=== PATIENT | female | born 1985 | race Caucasian/White ===

== ENCOUNTER 2019-09-13 17:35 | Emergency (ER) | payer OTHER ==
[2019-09-13 17:56] VITALS: TEMP 98.3
[2019-09-13] MEDS ORDERED: predniSONE 20 MG TAB PO ONE (18:06)
[2019-09-13] MEDS ORDERED: PROMETHAZINE HCL INJ 25 MG in SODIUM CHLORIDE 0.9% 50ML 50 ML IVPB ONE (18:06)
[2019-09-13] MEDS ORDERED: KETOROLAC TROMETHAMINE INJ 30 MG/ML VIAL IM ONE (18:06)
[2019-09-13] MEDS ORDERED: HYDROcodone 7.5MG/APAP 325MG 1 EA TAB PO ONE (18:06)
[2019-09-13] MEDS ORDERED: PROMETHAZINE HCL INJ 25 MG/ML VIAL ONE (18:11)
[2019-09-13] MEDS ORDERED: SODIUM CHLORIDE 0.9% 50ML 50 ML ONE (18:12)
[2019-09-13] MEDS ORDERED: SULFA/TRIMETH 800/160 (DS) TAB 1 EA TAB PO ONE (18:14)
[2019-09-13] MEDS ORDERED: CIPROFLOXACIN 500 MG TAB PO ONE (19:47)
[2019-09-13] MEDS ORDERED: cefTRIAXone SODIUM 1 GM VIAL IM ONE (19:48)
[2019-09-13] MEDS ORDERED: LIDOCAINE 1% 2 ML VIAL INJ ONE (19:51)
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
[2019-09-13 20:00] VITALS: BP 101/66; O2SAT 100
== END 2019-09-13 20:09 | disposition home or self-care (01) ==
LOC: ER 17:35
DX: N30.90 Cystitis, unspecified without hematuria (principal); G43.909 Migraine, unspecified, not intractable, without status migrainosus; D50.8 Other iron deficiency anemias
CPT/HCPCS: 36415; 80053; 81001; 83735; 84443; 84703; 85025; 87086; A4216; J0696; J1885; J2550; J7512

== ENCOUNTER 2019-12-18 20:13 | Emergency (ER) | payer OTHER ==
[2019-12-18] MEDS ORDERED: SODIUM CHLORIDE 0.9% 1000ML 1,000 ML IVS ONE (20:38)
[2019-12-18] MEDS ORDERED: ONDANSETRON INJ 4 MG/2 ML VIAL IV ONE (20:38)
--- NOTE | 2019-12-18 20:42 | ED.PDOC ---
History of Present Illness - General Chief Complaint: General Stated Complaint: dizzy, lightheaded, nausea x's 2 days Time Seen by Provider: 12/18/19 20:33 Additional Information: Patient is a 34-year-old female who presents to the ED with chief complaint of dizziness. 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 Patient indicates the symptoms have been on and off for the past 2 days but became worse today. Patient denies vomiting, fever, chills, chest pain, shortness of breath, abdominal pain, dysuria. She does not believe that she is . Patient in general is healthy and has not experienced these symptoms before. Patient is asymptomatic here in the ED and feeling better. She denies any sensation of vertigo and she indicates she has no difficulty walking. - History of Present Illness Allergies/Adverse Reactions: Allergies NO KNOWN ALLERGY Allergy (Verified 12/18/19 20:28) Home Medications: Ambulatory Orders Ciprofloxacin [Cipro] 500 mg PO BID #10 tab 09/13/19 Sulfa/Trimeth 800/160 (Ds) Tab [Bactrim DS Tab] 1 ea PO BID #10 tab 09/13/19 Meclizine HCl [Antivert] 25 mg PO Q8H PRN #20 tab 12/18/19 Review of Systems - Review of Systems Constitutional: States: weakness. Denies: chills, fever Respiratory: States: no symptoms reported. Denies: cough, short of breath Cardiology: Denies: chest pain, palpitations Gastrointestinal/Abdominal: States: nausea. Denies: abdominal pain, vomiting Genitourinary: Denies: dysuria, frequency, hematuria Musculoskeletal: States: no symptoms reported. Denies: muscle pain Skin: States: no symptoms reported. Denies: rash Neurological: States: no symptoms reported. Denies: numbness, paresthesia All other Systems: Reviewed and Negative Past Medical History (General) - Patient Medical History Hx Seizures: No Hx Stroke: No Hx Dementia: No Hx Asthma: No Hx of COPD: No Hx Cardiac Disorders: No Hx Congestive Heart Failure: No Hx Pacemaker: No Hx Hypertension: No Hx Thyroid Disease: Yes - during Hx Diabetes: No Hx Gastroesophageal Reflux: No Hx Renal Disease: No Hx Cancer: No Hx of HIV: No Hx Hepatitis C: No Hx MRSA: No Surgical History: appendectomy, cholecystectomy - Vaccination History Hx Tetanus, Diphtheria Vaccination: Yes Hx Influenza Vaccination: No - Social History Hx Alcohol Use: No - Female History Patient : No Family Medical History - Family History Mother Family History: No Known Physical Exam - Physical Exam General Appearance: Alert, Comfortable, No apparent distress, Well Developed, Well Nourished Neck: supple, normal inspection Respiratory: lungs clear, normal breath sounds, no respiratory distress, no accessory muscle use Cardiovascular/Chest: normal peripheral pulses, regular rate, rhythm, no edema, no gallop, no JVD, no murmur Gastrointestinal/Abdominal: normal bowel sounds, non tender, soft, no organomegaly, no pulsatile mass Back Exam: no CVA tenderness Extremity: normal inspection, no pedal edema 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 12/18/19 21:11 EKG: Sinus bradycardia, rate 57, normal QRS, normal axis, normal ST segment, nonspecific T wave changes. Negative STEMI. EKG read by Carlitos Steiner MD. 12/18/19 22:54 Patient feeling much better status post IV fluids. Her labs are unremarkable and her EKG is non-concerning. Clinically I suspect possible volume depletion as the source of patient's symptoms. I will discharge with Antivert and patient to follow-up with her PCP as needed. Vital signs stable, patient is NAD and looks clinically well and I believe is safe for discharge with outpatient f ollow-up. Follow-up instructions, discharge instructions and return to ED precautions discussed with patient. Patient voices understanding and willingness to comply with instructions. All laboratory results have been discussed with the patient, and all questions answered. Patient is happy with plan. Departure - Departure Clinical Impression: Dizziness Time of Disposition: 22:56 Disposition: Discharge to Home or Self Care Condition: Good Departure Forms: ED Discharge - Pt. Copy, Patient Portal Self Enrollment Instructions: Dizziness, Nonvertigo, (DC) Referrals: KWASI LAZARO [Primary Care Provider] - 1-2 Weeks Prescriptions: Meclizine HCl [Antivert] 25 mg PO Q8H PRN #20 tab PRN Reason: Dizziness Home Medications: Ambulatory Orders Ciprofloxacin [Cipro] 500 mg PO BID #10 tab 09/13/19 Sulfa/Trimeth 800/160 (Ds) Tab [Bactrim DS Tab] 1 ea PO BID #10 tab 09/13/19 Meclizine HCl [Antivert] 25 mg PO Q8H PRN #20 tab 12/18/19
[2019-12-18 22:06] VITALS: BP 105/69; TEMP 96.7; O2SAT 99
== END 2019-12-18 23:01 | disposition home or self-care (01) ==
LOC: ER 20:13
DX: R42 Dizziness and giddiness (principal); R00.1 Bradycardia, unspecified
CPT/HCPCS: 80053; 81001; 84702; 85025; 93005; J2405; J7030

== ENCOUNTER 2019-12-31 21:39 | Emergency (ER) | payer OTHER ==
[2019-12-31] MEDS ORDERED: HYDROcodone 10MG/APAP 325MG 1 EA TAB PO ONE (22:01)
[2019-12-31] MEDS ORDERED: CYCLOBENZAPRINE HCL 10 MG TAB PO ONE (22:01)
[2019-12-31] MEDS ORDERED: IBUPROFEN 200 MG TAB PO ONE (22:01)
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
[2019-12-31 22:29] VITALS: O2SAT 99
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
[2019-12-31 23:28] VITALS: BP 102/66; TEMP 97.1
== END 2019-12-31 23:28 | disposition home or self-care (01) ==
LOC: ER 21:39
DX: S43.402A Unspecified sprain of left shoulder joint, initial encounter (principal); S63.502A Unspecified sprain of left wrist, initial encounter; V49.59XA Passenger injured in collision with other motor vehicles in traffic accident, initial encounter; Y92.410 Unspecified street and highway as the place of occurrence of the external cause; Z87.891 Personal history of nicotine dependence

== ENCOUNTER 2020-01-06 06:52 | Emergency (ER) | payer OTHER ==
[2020-01-06] MEDS ORDERED: ONDANSETRON ODT 8 MG TAB SL PRN (07:06)
[2020-01-06] MEDS ORDERED: MORPHINE SULFATE INJ 10 MG/ML VIAL IM ONE (07:06)
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
--- NOTE | 2020-01-06 07:32 | RAD ---
EXAM: X-RAY, three views of the cervical spine HISTORY: Neck pain. COMPARISON: None. FINDINGS: Alignment: Normal. Bones: No acute fracture. Discs: Normal disc spaces. Facets: Mild to moderate arthropathy at C7-T1. IMPRESSION: 1. Mild to moderate facet arthropathy at C7-T1. 2. No acute bone abnormality. Electronically signed by: Chino Ng MD 01/06/2020 7:31 AM CDT
--- NOTE | 2020-01-06 07:33 | RAD ---
EXAM: XR Left Scapula Complete CLINICAL HISTORY: The patient is 34 years old and is Female; pain TECHNIQUE: Two views of the left scapula. COMPARISON: No relevant prior studies available. FINDINGS: Bones/joints: Unremarkable. No acute fracture. No dislocation. Soft tissues: Unremarkable. IMPRESSION: No acute findings. Electronically signed by: Yasmin Wang MD 01/06/2020 7:31 AM CDT
[2020-01-06 08:14] VITALS: BP 97/59; TEMP 97.4; O2SAT 99
== END 2020-01-06 08:10 | disposition home or self-care (01) ==
LOC: ER 06:52
DX: S43.402D Unspecified sprain of left shoulder joint, subsequent encounter (principal); M67.912 Unspecified disorder of synovium and tendon, left shoulder; M47.813 Spondylosis without myelopathy or radiculopathy, cervicothoracic region; Z87.891 Personal history of nicotine dependence; V49.9XXD Car occupant (driver) (passenger) injured in unspecified traffic accident, subsequent encounter; Y92.410 Unspecified street and highway as the place of occurrence of the external cause
CPT/HCPCS: 72040; 73010; J2270

== ENCOUNTER 2020-03-19 18:37 | Emergency (ER) | payer OTHER ==
[2020-03-19 18:53] VITALS: TEMP 97.9
[2020-03-19] MEDS ORDERED: cefTRIAXone SODIUM 1 GM VIAL IM ONE (19:07)
[2020-03-19] MEDS ORDERED: CIPROFLOXACIN 500 MG TAB PO ONE (19:07)
[2020-03-19] MEDS ORDERED: IBUPROFEN 200 MG TAB PO ONE (19:08)
[2020-03-19] MEDS ORDERED: PHENAZOPYRIDINE HCL 200 MG TAB PO ONE (19:08)
[2020-03-19] MEDS ORDERED: LIDOCAINE 1% 10 ML VIAL INJ ONE (19:16)
--- NOTE | 2020-03-19 19:24 | ED.PDOC ---
History of Present Illness - General Chief Complaint: Problem Stated Complaint: left flank pain Time Seen by Provider: 03/19/20 18:39 Source: patient Exam Limitations: no limitations - History of Present Illness Initial Comments: The patient is a 34-year-old female presented emergency room secondary to left leg pain that started about 24 hours ago. It is associated with increased urinary frequency and dysuria. No fever. No history of frequent urinary tract infections. No other symptoms. No vaginal discharge. Timing/Duration: 24 hours Severity: moderate Improving Factors: nothing Worsening Factors: nothing Associated Symptoms: denies symptoms Allergies/Adverse Reactions: Allergies NO KNOWN ALLERGY Allergy (Verified 12/18/19 20:28) Home Medications: Ambulatory Orders Acetaminophen W/ Codeine [Tylenol W/ CODEINE #3] 1 - 2 tablet PO Q6H PRN #20 ea 12/31/19 Cyclobenzaprine HCl [Flexeril] 10 mg PO Q6H PRN #20 tab 12/31/19 Ibuprofen [Motrin] 600 mg PO Q6H PRN #20 tab 12/31/19 Gabapentin 100 mg PO QID PRN #30 cap 01/06/20 Amoxicillin & Pot Clavulanate [Augmentin Tab] 875 mg PO BID #14 tab 03/19/20 Ciprofloxacin [Cipro] 500 mg PO BID #14 tab 03/19/20 Review of Systems - Review of Systems Constitutional: States: no symptoms reported EENTM: States: no symptoms reported Respiratory: States: no symptoms reported Cardiology: States: no symptoms reported Gastrointestinal/Abdominal: States: no symptoms reported Genitourinary: States: dysuria, frequency Musculoskeletal: States: back pain Skin: States: no symptoms reported Neurological: States: no symptoms reported Endocrine: States: no symptoms reported Hematologic/Lymphatic: States: no symptoms reported All other Systems: No Change from Baseline Past Medical History (General) - Patient Medical History Hx Seizures: No Hx Stroke: No Hx Dementia: No Hx Asthma: No Hx of COPD: No Hx Cardiac Disorders: No Hx Congestive Heart Failure: No Hx Pacemaker: No Hx Hypertension: No Hx Thyroid Disease: Yes - during Hx Diabetes: No Hx Gastroesophageal Reflux: No Hx Renal Disease: No Hx Cancer: No Hx of HIV: No Hx Hepatitis C: No Hx MRSA: No Surgical History: appendectomy, cholecystectomy, other - Vaccination History Hx Tetanus, Diphtheria Vaccination: No Hx Influenza Vaccination: No - Social History Hx Tobacco Use: Yes Hx Alcohol Use: Yes - Female History Patient : No Family Medical History - Family History Mother Family History: No Known Physical Exam - Physical Exam General Appearance: Alert, Other - Uncomfortable Eye Exam: bilateral normal Ears, Nose, Throat: hearing grossly normal, normal pharynx Neck: full range of motion Respiratory: no respiratory distress, no accessory muscle use Cardiovascular/Chest: normal peripheral pulses, no edema Peripheral Pulses: radial,right: 2+, radial,left: 2+ Rectal Exam: deferred Back Exam: CVA tenderness (L) - Mild Extremity: normal range of motion, no pedal edema 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 The patient is being placed on ciprofloxacin and receiving a dose of Rocephin. She will continue the ciprofloxacin and Augmentin for the next week. She does need to follow back up with her primary care doctor for a repeat urinalysis and test of cure. Urine will be cultured here. Obviously if the patient is worsening then she needs to return further evaluation and intervention. She does need to increase her fluid intake significantly over the next few days. Additionally she can take [id number] Azo and ibuprofen for symptom relief if needed. ER warnings are given. britta nam [phone] - Results/Orders Results/Orders: Laboratory Tests 03/19/20 18:48 Urine Color Yellow Urine Appearance Cloudy Urine pH 6.0 Ur Specific [place] >= 1.030 Urine Protein >=300 H Urine Glucose (UA) Negative Urine Ketones Trace Urine Blood Large H Urine Nitrite Positive H Urine Bilirubin Negative Urine Urobilinogen 1.0 Ur Leukocyte Esterase Small H Urine RBC Obscured by wbc's H Urine WBC Tntc H Ur Epithelial Cells Obscured by wbc's Urine Bacteria Obscured by wbc's H Departure - Departure Clinical Impression: Pyelonephritis Disposition: Discharge to Home or Self Care Condition: Fair Departure Forms: ED Discharge - Pt. Copy, Patient Portal Self Enrollment Instructions: Urinary Tract Infection, Adult (DC) Diet: regular diet Activity: increase activity as tolerated Referrals: KWASI LAZARO [Primary Care Provider] - 1-2 Weeks Prescriptions: Amoxicillin & Pot Clavulanate [Augmentin Tab] 875 mg PO BID #14 tab Ciprofloxacin [Cipro] 500 mg PO BID #14 tab Home Medications: Ambulatory Orders Acetaminophen W/ Codeine [Tylenol W/ CODEINE #3] 1 - 2 tablet PO Q6H PRN #20 ea 12/31/19 Cyclobenzaprine HCl [Flexeril] 10 mg PO Q6H PRN #20 tab 12/31/19 Ibuprofen [Motrin] 600 mg PO Q6H PRN #20 tab 12/31/19 Gabapentin 100 mg PO QID PRN #30 cap 01/06/20 Amoxicillin & Pot Clavulanate [Augmentin Tab] 875 mg PO BID #14 tab 03/19/20 Ciprofloxacin [Cipro] 500 mg PO BID #14 tab 03/19/20 Additional Instructions: The patient is a 34-year-old female presenting with what appears to be early pyelonephritis on the left. The patient is being placed on ciprofloxacin and receiving a dose of Rocephin. She will continue the ciprofloxacin and Augmentin for the next week. She does need to follow back up with her primary care doctor for a repeat urinalysis and test of cure. Urine will be cultured here. Obviously if the patient is worsening then she needs to return further evaluation and intervention. She does need to increase her fluid intake significantly over the next few days. Additionally she can take [id number] Azo and ibuprofen for symptom relief if needed. ER warnings are given.
[2020-03-19 19:39] VITALS: BP 111/59; O2SAT 97
== END 2020-03-19 19:42 | disposition home or self-care (01) ==
LOC: ER 18:37
DX: N12 Tubulo-interstitial nephritis, not specified as acute or chronic (principal); M79.605 Pain in left leg
CPT/HCPCS: 81001; 87086; 87088; 87186; J0696

== ENCOUNTER 2020-03-21 16:14 | Emergency (ER) | payer OTHER ==
[2020-03-21] MEDS ORDERED: KETOROLAC TROMETHAMINE INJ 30 MG/ML VIAL IV ONE (16:25)
[2020-03-21] MEDS ORDERED: SODIUM CHLORIDE 0.9% 1000ML 1,000 ML IVS ONE (16:25)
--- NOTE | 2020-03-21 18:10 | CT ---
EXAM: CT Abdomen and Pelvis With Intravenous Contrast CLINICAL HISTORY: uti left flank pain, failure to respond to abx TECHNIQUE: Axial computed tomography images of the abdomen and pelvis with intravenous contrast. Sagittal and coronal reformatted images were created and reviewed. This CT exam was performed using one or more of the following dose reduction techniques: automated exposure control, adjustment of the mA and/or kV according to patient size, and/or use of iterative reconstruction technique. COMPARISON: No relevant prior studies available. FINDINGS: Limitations: None. Lung bases: No abnormality noted. Pleural space: No abnormality noted. Heart: No abnormality noted. Mediastinum: No abnormality noted. ABDOMEN: Liver: No abnormality noted. Gallbladder and bile ducts: Cholecystectomy. Pancreas: Homogeneous enhancement. No mass, inflammation or ductal dilation. Spleen: No abnormality noted. Adrenals: Visualized portions appear normal. Kidneys and ureters: There is mild left hydroureteronephrosis. There is mild diffuse left urothelial thickening. No stone. There is a 2 mm nonobstructing right kidney stone. Stomach and bowel: Gastric bypass changes present. PELVIS: Appendix: Appendectomy. Bladder: No filling defects to suggest mass or large stone. No inflammation. Reproductive: No abnormalities noted. ABDOMEN and PELVIS: Intraperitoneal space: No free air. No significant fluid collection. Bones/joints: No acute change noted. Soft tissues: No abnormality noted. Vasculature: No abdominal aortic aneurysm. Lymph nodes: There are mildly enlarged inflamed lymph nodes in the root of the mesentery likely reactive. IMPRESSION: There is mild left hydroureteronephrosis and urothelial thickening. Consider pyelonephritis and recently passed stone. Electronically signed by: Prabha Pete MD 03/21/2020 6:09 PM CDT
[2020-03-21] MEDS ORDERED: CIPROFLOXACIN 500 MG TAB PO ONE (18:47)
[2020-03-21] MEDS ORDERED: PIPERACILLIN/TAZOBACTAM 3.375 GM in SODIUM CHLORIDE 0.9% 100ML 100 ML IVPB ONE (18:47)
--- NOTE | 2020-03-21 18:53 | ED.PDOC ---
History of Present Illness - General Chief Complaint: Problem Stated Complaint: left sided flank pain Time Seen by Provider: 03/21/20 16:15 Source: patient Exam Limitations: no limitations - History of Present Illness Initial Comments: The patient is a 34-year-old female presented to emergency room secondary to significant worsening of left flank pain today. Mild nausea along with it. The patient was seen 2 days ago with suspected early pyelonephritis but a definite cystitis. She was started on Augmentin and ciprofloxacin. No fevers. No history of pyelonephritis. She has had several urinary tract infections in the past. She denies any history of kidney stones on that side. Pain at its worst was about a 9 out of 10. It is currently a 6 or 7. The fl[place] nava is still having persistent urinary frequency and dysuria. Timing/Duration: other - Total of 4 days now Severity: moderate Improving Factors: nothing Worsening Factors: nothing Associated Symptoms: malaise, nausea/vomiting Allergies/Adverse Reactions: Allergies NO KNOWN ALLERGY Allergy (Verified 03/21/20 16:29) Home Medications: Ambulatory Orders Acetaminophen W/ Codeine [Tylenol W/ CODEINE #3] 1 - 2 tablet PO Q6H PRN #20 ea 12/31/19 Cyclobenzaprine HCl [Flexeril] 10 mg PO Q6H PRN #20 tab 12/31/19 Ibuprofen [Motrin] 600 mg PO Q6H PRN #20 tab 12/31/19 Gabapentin 100 mg PO QID PRN #30 cap 01/06/20 Amoxicillin & Pot Clavulanate [Augmentin Tab] 875 mg PO BID #14 tab 03/19/20 Ciprofloxacin [Cipro] 500 mg PO BID #14 tab 03/19/20 Review of Systems - Review of Systems Constitutional: States: malaise EENTM: States: no symptoms reported Respiratory: States: no symptoms reported Cardiology: States: no symptoms reported Gastrointestinal/Abdominal: States: nausea Genitourinary: States: see HPI Musculoskeletal: States: back pain Skin: States: no symptoms reported Neurological: States: no symptoms reported Endocrine: States: no symptoms reported All other Systems: No Change from Baseline Past Medical History (General) - Patient Medical History Hx Seizures: No Hx Stroke: No Hx Dementia: No Hx Asthma: No Hx of COPD: No Hx Cardiac Disorders: No Hx Congestive Heart Failure: No Hx Pacemaker: No Hx Hypertension: No Hx Thyroid Disease: Yes - during Hx Diabetes: No Hx Gastroesophageal Reflux: No Hx Renal Disease: No Hx Cancer: No Hx of HIV: No Hx Hepatitis C: No Hx MRSA: No Surgical History: appendectomy, cholecystectomy - Vaccination History Hx Tetanus, Diphtheria Vaccination: No Hx Influenza Vaccination: No - Social History Hx Tobacco Use: Yes Hx Alcohol Use: Yes - Activities of Daily Living Hospice Agency (if applicable):: None - Female History Patient : No Family Medical History - Family History Mother Family History: No Known Physical Exam - Physical Exam General Appearance: Alert Eye Exam: bilateral normal Ears, Nose, Throat: hearing grossly normal, normal ENT inspection Neck: full range of motion, supple Respiratory: lungs clear, normal breath sounds, no respiratory distress, no accessory muscle use Cardiovascular/Chest: normal peripheral pulses, regular rate, rhythm, no edema Peripheral Pulses: radial,right: 2+, radial,left: 2+ Gastrointestinal/Abdominal: non tender - Mild suprapubic discomfort persists, soft Rectal Exam: deferred Back Exam: CVA tenderness (L) Extremity: non-tender, normal inspection, no pedal edema, normal capillary refill 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 Urinalysis appears a little bit improved when compared to 2 days ago with the patient's left-sided, left flank symptoms have worsened significantly. CT scan is concerning for the possibility of a stricture at about the proximal third of the left ureter. The patient's blood pressures are borderline low but according to her, they normally are somewhat low. She has received a liter of IV fluids. She is receiving ciprofloxacin and Zosyn here. She has been on ciprofloxacin and Augmentin for almost 48 hours now. The patient has been transferred for evaluation with urology to make sure there is no significant obstruction of the outflow from the left kidney, in light of the current infection. Transferring for higher level of care and specialty care. Acceptance is appreciated. britta nam [phone] - Results/Orders Results/Orders: CT scan of abdomen pelvis with contrast shows mild to moderate hydroureteral nephrosis on the left. Dilation extends down approximately 2 inches down the proximal ureter. Laboratory Tests 03/21/20 03/21/20 03/21/20 16:30 16:30 16:30 WBC 3.7 L RBC 4.33 Hgb 8.7 L Hct 27.9 L MCV 64.6 L MCH 20.1 L MCHC 31.2 L RDW 18.1 H Plt Count 262 MPV 7.7 Absolute Neuts (auto) 2.20 Absolute Lymphs (auto) 1.20 Absolute Monos (auto) 0.20 Absolute Eos (auto) 0.10 Absolute Basos (auto) 0.00 Neutrophils % 58.9 Lymphocytes % 31.2 Monocytes % 6.6 Eosinophils % 2.5 Basophils % 0.8 Normal RBC Morphology Stain quality accept Sodium 138 Potassium 4.1 Chloride 102 Carbon Dioxide 26 Anion Gap 14.1 BUN 13 Creatinine 0.50 L BUN/Creatinine Ratio 26.0 H Random Glucose 86 Serum Osmolality 275.1 Lactic Acid 0.6 Calcium 8.5 Total Bilirubin 0.9 AST 22 ALT 19 Alkaline Phosphatase 126 H Serum Total Protein 7.3 Albumin 3.7 Globulin 3.6 H Albumin/Globulin Ratio 1.0 L Amylase 59 Lipase 28 Serum HCG, Qual Urine Color Urine Appearance Urine pH Ur Specific [place] Urine Protein Urine Glucose (UA) Urine Ketones Urine Blood Urine Nitrite Urine Bilirubin Urine Urobilinogen Ur Leukocyte Esterase Urine RBC Urine WBC Ur Epithelial Cells Urine Bacteria 03/21/20 03/21/20 16:30 16:30 WBC RBC Hgb Hct MCV MCH MCHC RDW Plt Count MPV Absolute Neuts (auto) Absolute Lymphs (auto) Absolute Monos (auto) Absolute Eos (auto) Absolute Basos (auto) Neutrophils % Lymphocytes % Monocytes % Eosinophils % Basophils % Normal RBC Morphology Sodium Potassium Chloride Carbon Dioxide Anion Gap BUN Creatinine BUN/Creatinine Ratio Random Glucose Serum Osmolality Lactic Acid Calcium Total Bilirubin AST ALT Alkaline Phosphatase Serum Total Protein Albumin Globulin Albumin/Globulin Ratio Amylase Lipase Serum HCG, Qual Negative Urine Color [place] H Urine Appearance Cloudy Urine pH 5.0 Ur Specific [place] 1.025 Urine Protein >=300 H Urine Glucose (UA) 100 H Urine Ketones 15 H Urine Blood Large H Urine Nitrite Positive H Urine Bilirubin Small H Urine Urobilinogen 4.0 H Ur Leukocyte Esterase Large H Urine RBC >50 H Urine WBC >50 H Ur Epithelial Cells 10-20 Urine Bacteria 2+ H Departure - Departure Clinical Impression: Pyelonephritis Disposition: Transfer to Hospital Condition: Fair Departure Forms: ED Discharge - Pt. Copy, Patient Portal Self Enrollment Referrals: KWASI LAZARO [Primary Care Provider] - 1-2 Weeks Home Medications: Ambulatory Orders Acetaminophen W/ Codeine [Tylenol W/ CODEINE #3] 1 - 2 tablet PO Q6H PRN #20 ea 12/31/19 Cyclobenzaprine HCl [Flexeril] 10 mg PO Q6H PRN #20 tab 12/31/19 Ibuprofen [Motrin] 600 mg PO Q6H PRN #20 tab 12/31/19 Gabapentin 100 mg PO QID PRN #30 cap 01/06/20 Amoxicillin & Pot Clavulanate [Augmentin Tab] 875 mg PO BID #14 tab 03/19/20 Ciprofloxacin [Cipro] 500 mg PO BID #14 tab 03/19/20 Transfer to Outside Facility - Transfer Information Decision to Transfer Date: 03/21/20 Decision to Transfer Time: 18:57 Reason for Transfer: required specialist not available Accepting Provider:: dr loredo Accepting Facility: [facility]
[2020-03-21] MEDS ORDERED: ACETAMINOPHEN W/COD #3 TAB 1 EA TAB PO ONE (19:17)
[2020-03-21 19:32] VITALS: BP 120/91; TEMP 96.9; O2SAT 99
== END 2020-03-21 19:32 | disposition short-term general hospital (02) ==
LOC: ER 16:14
DX: N12 Tubulo-interstitial nephritis, not specified as acute or chronic (principal); R11.2 Nausea with vomiting, unspecified
CPT/HCPCS: 36415; 74177; 80053; 81001; 82150; 83605; 83690; 84703; 85025; 87040; 87086; J1885; J2543; J7030; J7050